=== PATIENT | female | born 1980 | race Two or more races ===

== ENCOUNTER 2016-09-02 21:13 | Emergency (ER) | payer BC, MEDICAID ==
--- NOTE | 2016-09-02 22:24 | ER Document Report ---
ED Medical Screen (RME) - General Chief Complaint: Vag Bleeding, +preg <12wks Stated Complaint: VAGINAL BLEEDING Time seen by provider: 22:22 Mode of Arrival: Ambulatory Information source: Patient Notes: 36-year-old female presents to ED with vaginal bleeding with early unsure how far how. I have greeted and performed a rapid initial assessment of this patient. A comprehensive ED assessment and evaluation of the patient, analysis of test results and completion of medical decision making process will be conducted by an additional ED providers. - Related Data Allergies/Adverse Reactions: No Known Allergies Allergy (Verified 12/29/12 21:36) Past Medical History - Immunizations Hx Diphtheria, Pertussis, Tetanus Vaccination: No Physical Exam - Vital signs Vitals: Temp Pulse Resp BP Pulse Ox 97.9 F 72 14 128/75 H 99 09/02/16 22:03 09/02/16 22:03 09/02/16 22:03 09/02/16 22:03 09/02/16 22:03 Course - Vital Signs Vital signs: Temp Pulse Resp BP Pulse Ox 97.9 F 72 14 128/75 H 99 09/02/16 22:03 09/02/16 22:03 09/02/16 22:03 09/02/16 22:03 09/02/16 22:03
[2016-09-03 01:43] LABS: APPEARANCE,URINE SLIGHTLY-CLOUDY; BILIRUBIN,URINE NEGATIVE (NEGATIVE); GLUCOSE, URINE NEGATIVE (NEGATIVE); KETONES,URINE NEGATIVE (NEGATIVE); LEUKOCYTE ESTERASE,URINE NEGATIVE (NEGATIVE); NITRITE,URINE NEGATIVE (NEGATIVE); PROTEIN,URINE NEGATIVE (NEGATIVE); URINE SPECIFIC GRAVITY 1.012; UROBILINOGEN,URINE NEGATIVE mg/dL (<2.0)
--- NOTE | 2016-09-03 02:30 | ER Document Report ---
ED GI/ - General Chief Complaint: Vag Bleeding, +preg <12wks Stated Complaint: VAGINAL BLEEDING Time seen by provider: 02:30 Mode of Arrival: Ambulatory Information source: Patient TRAVEL OUTSIDE OF THE [place] IN LAST 30 DAYS: No - HPI Patient complains to provider of: , Vaginal bleeding Onset: Last week Timing/Duration: Sudden Quality of pain: Achy, Cramping Severity at maximum: Mild Severity in ED: None Location: Pelvis Vaginal bleeding (Compared to normal period): Similar Menstrual period history: Missed Associated symptoms: None Exacerbated by: Denies Relieved by: Denies Similar symptoms previously: No Recently seen / treated by doctor: Yes Notes: 09/03/16 03:52 Patient is a 36-year-old female presenting to the emergency room complaining of vaginal bleeding that started last Monday and stopped yesterday, states she missed her period in July, last menstrual cycle was in June at some point in time, she reports a positive home test and she would up with her primary care providers last week and had a positive test there is well, she denies any abdominal or pelvic pain, no vomiting, no vaginal discharge - Related Data Allergies/Adverse Reactions: No Known Allergies Allergy (Verified 09/02/16 22:27) Past Medical History - General Information source: Patient - Social History Smoking Status: Never Smoker Chew tobacco use (# tins/day): No Frequency of alcohol use: None Drug Abuse: None Family History: Reviewed & Not Pertinent Patient has suicidal ideation: No Patient has homicidal ideation: No Renal/ Medical History: Denies: Hx Peritoneal Dialysis - Immunizations Hx Diphtheria, Pertussis, Tetanus Vaccination: No Review of Systems - Review of Systems Constitutional: No symptoms reported EENT: No symptoms reported Cardiovascular: No symptoms reported Respiratory: No symptoms reported Gastrointestinal: No symptoms reported Genitourinary: No symptoms reported Female Genitourinary: See HPI Musculoskeletal: No symptoms reported Skin: No symptoms reported Hematologic/Lymphatic: No symptoms reported Neurological/Psychological: No symptoms reported -: Yes All other systems reviewed and negative Physical Exam - Vital signs Vitals: Temp Pulse Resp BP Pulse Ox 97.9 F 72 14 128/75 H 99 09/02/16 22:03 09/02/16 22:03 09/02/16 22:03 09/02/16 22:03 09/02/16 22:03 Interpretation: Normal - General General appearance: Appears well, Alert - HEENT Head: Normocephalic, Atraumatic Eyes: Normal Pupils: PERRL - Respiratory Respiratory status: No respiratory distress Chest status: Nontender Breath sounds: Normal Chest palpation: Normal - Cardiovascular Rhythm: Regular Heart sounds: Normal auscultation Murmur: No - Abdominal Inspection: Normal Distension: No distension Bowel sounds: Normal Tenderness: Nontender Organomegaly: No organomegaly - Back Back: Normal, Nontender - Extremities General upper extremity: Normal inspection, Nontender, Normal color, Normal ROM , Normal temperature General lower extremity: Normal inspection, Nontender, Normal color, Normal ROM , Normal temperature, Normal weight bearing. No: Amelia's sign - Neurological Neuro grossly intact: Yes Cognition: Normal Orientation: AAOx4 [place] Coma Scale Eye Opening: Spontaneous [place] Coma Scale Verbal: Oriented [place] Coma Scale Motor: Obeys Commands Venecia Coma Scale Total: 15 Speech: Normal Motor strength normal: LUE, RUE, LLE, RLE Sensory: Normal - Psychological Associated symptoms: Normal affect, Normal mood - Skin Skin Temperature: Warm Skin Moisture: Dry Skin Color: Normal Course - Re-evaluation Re-evalutation: 09/03/16 03:24 Patient's laboratory findings were discussed with her at bedside, beta quantitative hCG is only 15 today, I explained to patient that is unlikely that she will remain , and that the bleeding she's had over the past few days was likely a miscarriage, she has no pelvic pain, the bleeding has stopped , she is otherwise resting comfortably in no acute distress, patient was advised to follow-up with her primary care provider or [facility] in 2-3 days or return if symptoms worsen, patient acknowledges understanding and agreement with this plan - Vital Signs Vital signs: Temp Pulse Resp BP Pulse Ox 97.9 F 66 14 128/75 H 98 09/02/16 22:24 09/02/16 22:24 09/02/16 22:24 09/02/16 22:24 09/02/16 22:24 - Laboratory Result Diagrams: 09/03/16 02:35 09/03/16 02:35 Laboratory results interpreted by me: 09/03/16 09/03/16 09/03/16 01:20 02:35 02:35 Seg Neutrophils % 32.5 L Lymphocytes % 59.3 H Calcium 10.3 H Total Protein 9.2 H Beta HCG, Quant 15.02 H Urine Blood SMALL H Discharge - Discharge Clinical Impression: Vaginal bleeding before 22 weeks gestation Condition: Stable Disposition: HOME, SELF-CARE Instructions: Vaginal Bleeding ([facility]), Threatened Miscarriage ([facility]) Additional Instructions: Follow up with your primary care provider or [facility] in 2-3 days for repeat testing. Return to the emergency room immediately if symptoms worsen or any additional concerns.
[2016-09-03 02:55] LABS: ABSOLUTE EOSINOPHILS # (AUTO) 0.2 10^3/uL (0.0-0.6); ABSOLUTE LYMPHOCYTES (AUTO) 3.4 10^3/uL (0.5-4.7); ABSOLUTE MONOCYTES (AUTO) 0.3 10^3/uL (0.1-1.4); ABSOLUTE NEUT (AUTO) 1.8 10^3/uL (1.7-8.2); BASOPHILS % (AUTO) 0.9 % (0-2); EOSINOPHILS % (AUTO) 2.8 % (0-6); HEMATOCRIT 41.1 % (36.0-47.0); HEMOGLOBIN 13.7 g/dL (12.0-15.5); LYMPHOCYTES % (AUTO) 59.3 % (13-45); MEAN CORPUSCULAR HEMOGLOBIN 30.7 pg (27.0-33.4); MEAN CORPUSCULAR HGB CONC 33.4 g/dL (32.0-36.0); MEAN CORPUSCULAR VOLUME 92 fl (80-97); MONOCYTES % (AUTO) 4.5 % (3-13); RED BLOOD COUNT 4.47 10^6/uL (3.72-5.28); RED CELL DISTRIBUTION WIDTH 13.4 % (11.5-14.0); SEGMENTED NEUTROPHILS % (AUTO) 32.5 % (42-78); WHITE BLOOD COUNT 5.7 10^3/uL (4.0-10.5)
[2016-09-03 02:57] LABS: ALANINE AMINOTRANSFERASE 34 U/L (9-52); ALBUMIN 4.6 g/dL (3.5-5.0); ALKALINE PHOSPHATASE 65 U/L (38-126); ANION GAP 11 (5-19); ASPARTATE AMINO TRANSFERASE 24 U/L (14-36); BILIRUBIN,TOTAL 0.6 mg/dL (0.2-1.3); BLOOD UREA NITROGEN 12 mg/dL (7-20); CALCIUM 10.3 mg/dL (8.4-10.2); CARBON DIOXIDE 30 mmol/L (22-30); CHLORIDE 101 mmol/L (98-107); CREATININE RESULT 0.82 mg/dL (0.52-1.25); GLUCOSE 97 mg/dL (75-110); POTASSIUM 3.9 mmol/L (3.6-5.0); SODIUM 142.4 mmol/L (137-145); TOTAL PROTEIN 9.2 g/dL (6.3-8.2)
[2016-09-03 03:59] VITALS: BP 119/68
== END 2016-09-03 03:59 | disposition home or self-care (01) ==
LOC: ER 21:13
DX: O46.90 Antepartum hemorrhage, unspecified, unspecified trimester (principal); Z3A.00 Weeks of gestation of pregnancy not specified
CPT/HCPCS: 36415; 80053; 81001; 84702; 85025; 99284

== ENCOUNTER 2017-08-21 11:41 | Outpatient (CLI) | payer OTHER, MEDICAID ==
--- NOTE | 2017-08-21 12:48 | Non Stress Test Report ---
Non Stress Test Datetime Report Generated by CPN: 08/21/2017 12:48 DEMOGRAPHIC EGA NST: 34.2 INDICATION Indication for Study: Diabetes Mellitus VITAL SIGNS Temperature - NST: 97.5 Pulse - NST: 94 RESP - NST: 18 NBPSYS NST: 99 NBPDIA NST: 55 MONITORING Monitor Explained: Monitor Explained; Test Explained; Patient Verbalized Understanding Time on Monitor: 08/21/2017 11:56 Time off Monitor: 08/21/2017 12:27 NST Duration: 31 NST INTERVENTIONS NST Interventions: PO Hydration; Reposition Patient Physician Notified NST: H RIYA, CNM REVIEWED STRIP BABY A: [id number] BABY A Movement : Present Contraction Frequency : NONE FHR Baseline : 135 Accelerations : 15X15 Decelerations : None Variability : Moderate 6-25bpm NST Review: Meets Criteria for Reactive NST NST Review and Verified By : MICHELLE Soto NST Results: Reactive NST REPORT Report Trigger: Send Report
== END 2017-08-21 12:38 | disposition home or self-care (01) ==
LOC: LC 11:41
PROVIDERS: ATTEND Obstetrics & Gynecology
PROC: 4A1HXCZ Monitoring of Products of Conception, Cardiac Rate, External Approach (ICD-10-PCS; principal; 2017-08-21)
DX: O24.419 Gestational diabetes mellitus in pregnancy, unspecified control (principal); O09.523 Supervision of elderly multigravida, third trimester; Z3A.34 34 weeks gestation of pregnancy
CPT/HCPCS: 59025

== ENCOUNTER 2017-08-28 07:30 | Inpatient (IN) | payer MEDICAID ==
[2017-09-22 11:28] LABS: ABSOLUTE EOSINOPHILS # (AUTO) 0.1 10^3/uL (0.0-0.6); ABSOLUTE LYMPHOCYTES (AUTO) 2.3 10^3/uL (0.5-4.7); ABSOLUTE MONOCYTES (AUTO) 0.4 10^3/uL (0.1-1.4); ABSOLUTE NEUT (AUTO) 5.5 10^3/uL (1.7-8.2); BASOPHILS % (AUTO) 0.4 % (0-2); EOSINOPHILS % (AUTO) 1.3 % (0-6); HEMATOCRIT 38.5 % (36.0-47.0); LYMPHOCYTES % (AUTO) 27.3 % (13-45); MEAN CORPUSCULAR HEMOGLOBIN 31.5 pg (27.0-33.4); MEAN CORPUSCULAR HGB CONC 33.8 g/dL (32.0-36.0); MEAN CORPUSCULAR VOLUME 93 fl (80-97); MONOCYTES % (AUTO) 5.2 % (3-13); PLATELET COUNT 183 10^3/uL (150-450); RED BLOOD COUNT 4.13 10^6/uL (3.72-5.28); RED CELL DISTRIBUTION WIDTH 15.3 % (11.5-14.0); SEGMENTED NEUTROPHILS % (AUTO) 65.8 % (42-78); TOTAL CELLS COUNTED % (AUTO) 100 %; WHITE BLOOD COUNT 8.3 10^3/uL (4.0-10.5)
[2017-09-22 11:41] LABS: APPEARANCE,URINE CLEAR; BILIRUBIN,URINE NEGATIVE (NEGATIVE); COLOR,URINE STRAW; GLUCOSE, URINE NEGATIVE (NEGATIVE); KETONES,URINE NEGATIVE (NEGATIVE); LEUKOCYTE ESTERASE,URINE TRACE (NEGATIVE); NITRITE,URINE NEGATIVE (NEGATIVE); PROTEIN,URINE NEGATIVE (NEGATIVE); URINE SPECIFIC GRAVITY 1.008; UROBILINOGEN,URINE NEGATIVE mg/dL (<2.0)
[2017-09-22 11:46] LABS: URINE AMPHETAMINES SCREEN NEGATIVE; URINE BARBITURATES SCREEN NEGATIVE; URINE BENZODIAZEPINES SCREEN NEGATIVE; URINE COCAINE SCREEN NEGATIVE; URINE MARIJUANA (THC) SCREEN NEGATIVE; URINE METHADONE SCREEN NEGATIVE; URINE PHENCYCLIDINE SCREEN NEGATIVE
[2017-09-25] MEDS ORDERED: LACTATED RINGERS 1000 ML IV PRN (05:00)
[2017-09-25] MEDS ORDERED: LIDOCAINE 0.5% INJ-PF (5 MG/ML) 50 ML SDV SUBCUT PRN (05:00)
[2017-09-25] MEDS ORDERED: RINGERS SOLUTION,LACTATED 1,000 ML IV PRN ×2 (05:00→11:47)
[2017-09-25] MEDS ORDERED: CEFAZOLIN 2 GM/D5W RTU 2 GM/50 ML RTUPB IV PRN (05:00)
[2017-09-25] MEDS ORDERED: OXYTOCIN 10 UNIT/ML VIAL ONE (09:35)
[2017-09-25] MEDS ORDERED: PROPOFOL INJ 200 MG/20 ML VIAL IV ONE (09:35)
[2017-09-25] MEDS ORDERED: OXYTOCIN/NORMAL SALINE 20 UNIT/1,000 ML RTUINJ ONE (09:36)
[2017-09-25] MEDS ORDERED: MIDAZOLAM 2 MG/2 ML INJ ONE (09:36)
[2017-09-25] MEDS ORDERED: EPHEDRINE SULFATE INJ 50 MG/1 ML AMPULE ONE (09:36)
[2017-09-25] MEDS ORDERED: FENTANYL CITRATE INJ/PF 100 MCG/2 ML AMPUL ONE (09:36)
[2017-09-25] MEDS ORDERED: ONDANSETRON HCL INJ/PF 4 MG/2 ML SDV ONE (09:37)
[2017-09-25] MEDS ORDERED: ACETAMINOPHEN 100 ML IV ONE (09:37)
[2017-09-25] MEDS ORDERED: DIPHENHYDRAMINE HCL 50 MG/ML VIAL IV PRN (09:44)
[2017-09-25] MEDS ORDERED: FENTANYL CITRATE INJ/PF 100 MCG/2 ML AMPUL IV PRN ×3 (09:44)
[2017-09-25] MEDS ORDERED: PROMETHAZINE HCL INJ 25 MG/1 ML VIAL IV PRN ×2 (09:44→11:47)
[2017-09-25] MEDS ORDERED: MISOPROSTOL 0.1 MG TABLET ONE (10:51)
[2017-09-25] MEDS ORDERED: MISOPROSTOL 0.2 MG TABLET ONE (10:52)
[2017-09-25] MEDS ORDERED: ACETAMINOPHEN 325 MG TABLET PO PRN (11:47)
[2017-09-25] MEDS ORDERED: SIMETHICONE 80 MG TAB.CHEW PO PRN (11:47)
[2017-09-25] MEDS ORDERED: DIPH/PERTUSS(ACELL)/TETANUS VAC/PF 0.5 ML SYR (>=10YO) IM PRN (11:47)
[2017-09-25] MEDS ORDERED: MEASLES,MUMPS&RUBELLA VACC/PF 0.5 ML VIAL SUBCUT PRN (11:47)
[2017-09-25] MEDS ORDERED: ACETAMINOPHEN 100 ML IV PRN (11:47)
[2017-09-25] MEDS ORDERED: OXYTOCIN/NORMAL SALINE 20 UNIT/1,000 ML RTUINJ IV PRN (11:47)
[2017-09-25] MEDS ORDERED: OXYCODONE-ACETAMINOPHEN 5-325 MG TABLET PO PRN (11:47)
--- NOTE | 2017-09-25 11:52 | PDOC DELIVERY SUMMARY ---
Delivery Summary - Maternal Hx : IV Hx Para: II Hx # Term Pregnancies: 2 Hx # Pregnancies: 0 Hx Total # of Abortions (Sponateous & Elective): 1 Number of Living Children: 2 SHANICE: 09/25/17 Gestational Age: 39.2 Risk Factors: Previous , Gestational Diabetes Ruptured Membranes: AROM Time of Rupture: 10:41 Fluids: Meconium Stained - Delivery Labor: Not In Labor Presentation: Vertex Heart Rate Monitoring: Done Pre-Operatively Uterine Contraction Monitoring: External Support Person Present: Yes Location: LD : Scheduled, Repeat Placenta: Within Normal Limits Placenta Description: normal Number of Vessels (Cord): 3 Nuchal Cord: No Delivery of Placenta Date: 09/25/17 Delivery of Placenta Time: 10:44 Estimated Blood Loss: 700ml - Medications Type of Anesthesia:: Spinal - Delivery Medications Delivery Meds: Cytotec 1000mcg Per Rectum/Vagina - Assess and Care Baby 1 Male Delivery of Infant Date: 09/25/17 Delivery of Time: 10:42 at 1 minute: 8 at 5 minutes: 9 Preprinted Number On Band: [id number] Infant Skin to Skin: No To Nursery At: 10:53 Mode of Transport: Bassinet Infant Delivery Weight: 3,805 Infant Delivery Length: 20 in - Delivery Personnel It Security Administrator: ABUNDIO FELIZ RN: MELANIA CHICAS RN: JAYSHERE BLUM MD: LEELEE MARQUEZ
[2017-09-25] MEDS ORDERED: KETOROLAC TROMETHAMINE INJ/PF 30 MG/1 ML SDV IV SCH (12:00)
[2017-09-25] MEDS ORDERED: NALBUPHINE HCL INJ 10 MG/1 ML AMPULE INJ ONE (12:04)
--- NOTE | 2017-09-25 12:04 | Brief Operative Note ---
BRIEF OPERATIVE REPORT DATE OF SURGERY: 09/25/17 TIME OF SURGERY: 11:45 PREOPERATIVE DIAGNOSIS: Keloid Scar, H/o Section x 2, A2GDM, AMA POSTOPERATIVE DIAGNOSIS: LEXIE - delivered SURGEON: LEELEE MARQUEZ FINDINGS: VMI delivered at 1042, Apgars 8/9, Weight 8#6oz, Cytotec 1000mcg AL placed for atony. minimal pelvic adhesive disease. Normal bilateral tubes and ovaries noted. EBL 700ml (QBL 921ml), UOP 150ml, IVF 1400ml COMPLICATIONS: None ESTIMATED BLOOD LOSS: 700ml (QBO 921ml) TISSUE REMOVED OR ALTERED: placenta and cord not sent to pathology TECHNICAL PROCEDURE: Scar Revision, Repeat Low Transverse Section
[2017-09-25] MEDS: FENTANYL CITRATE INJ/PF 100 MCG/2 ML AMPUL ONE ×2 (12:20→13:15)
[2017-09-25] MEDS ORDERED: KETOROLAC TROMETHAMINE INJ/PF 30 MG/1 ML SDV ONE (12:22)
[2017-09-25] MEDS ORDERED: NALBUPHINE HCL INJ 10 MG/1 ML AMPULE ONE (12:22)
[2017-09-25] MEDS ORDERED: MISOPROSTOL 0.2 MG TABLET PR ONE (14:50)
[2017-09-25] MEDS ORDERED: GLYCOPYRROLATE INJ 0.4 MG/2 ML VIAL ONE (15:03)
[2017-09-25] MEDS: OXYCODONE-ACETAMINOPHEN 5-325 MG TABLET PO PRN ×2 (16:27→23:30)
[2017-09-25] MEDS: DOCUSATE SODIUM 100 MG CAPSULE PO SCH (17:56)
[2017-09-25] MEDS ORDERED: INFLUENZA ADLT QUAD (36MOS+) 2017-18 VAC 0.5 ML SYR IM PRN (19:01)
[2017-09-25] MEDS: KETOROLAC TROMETHAMINE INJ/PF 30 MG/1 ML SDV IV SCH (22:46)
[2017-09-26] MEDS: KETOROLAC TROMETHAMINE INJ/PF 30 MG/1 ML SDV IV SCH (06:35)
[2017-09-26] MEDS: IBUPROFEN 800 MG TABLET PO SCH ×4 (06:38→23:47)
[2017-09-26 07:30] LABS: HEMOGLOBIN 10.5 g/dL (12.0-15.5); MEAN CORPUSCULAR HEMOGLOBIN 31.8 pg (27.0-33.4); MEAN CORPUSCULAR HGB CONC 33.8 g/dL (32.0-36.0); MEAN CORPUSCULAR VOLUME 94 fl (80-97); PLATELET COUNT 146 10^3/uL (150-450); RED BLOOD COUNT 3.29 10^6/uL (3.72-5.28); RED CELL DISTRIBUTION WIDTH 15.5 % (11.5-14.0); WHITE BLOOD COUNT 10.4 10^3/uL (4.0-10.5)
--- NOTE | 2017-09-26 09:12 | PDOC PROGRESS REPORT ---
Subjective-OB Progress Note for:: 09/26/17 Subjective: Doing well, OOB to BR, eating well, no c.o, some pain but hates to take pain medication, scant bleeding Physical Exam (OB) Vital Signs: Temp Pulse Resp BP Pulse Ox 97.6 F 62 16 97/61 L 100 09/26/17 08:53 09/26/17 08:53 09/26/17 08:53 09/26/17 08:53 09/26/17 08:53 Intake & Output 09/25/17 09/26/17 09/27/17 06:59 06:59 06:59 Intake Total 3728 Output Total 4330 Balance -602 Weight 70.76 kg - PIH/Pre-Eclampsia DTR's: 2 + Clonus: Negative Headache: Absent Epigastric Pain: No Visual Changes: No - Dressing Removed: No - incision D&I, no redness, drainage or swelling noted Incision: Open Closure Type: surg tape - Lochia Lochia Amount: Small 10-25 ml Lochia Color: Rubra/Red - Abdomen Description: Soft Hernia Present: No Fundal Description: Firm, Midline Fundal Height: u/u - u/2 Objective-Diagnostic Laboratory: 09/26/17 07:06 09/26/17 07:06 WBC 10.4 RBC 3.29 L Hgb 10.5 L Hct 31.0 L MCV 94 MCH 31.8 MCHC 33.8 RDW 15.5 H Plt Count 146 L Assessment and Plan(PN) - Assessment and Plan (1) Advanced maternal age (AMA) in Is this a current diagnosis for this admission?: Yes (2) Gestational diabetes mellitus (GDM) controlled on oral hypoglycemic drug Qualifiers: Trimester: second trimester Qualified Code(s): O24.415 - Gestational diabetes mellitus in , controlled by oral hypoglycemic drugs Is this a current diagnosis for this admission?: Yes (3) Maternal care due to low transverse uterine scar from previous delivery Is this a current diagnosis for this admission?: Yes (4) Status post repeat low transverse section Is this a current diagnosis for this admission?: Yes - Time Spent with Patient Time with patient: Less than 15 minutes Medications reviewed and adjusted accordingly: Yes - Disposition Anticipated Discharge: Home Within: within 48 hours
[2017-09-26] MEDS: DOCUSATE SODIUM 100 MG CAPSULE PO SCH ×2 (10:17→18:18)
[2017-09-26] MEDS: PRENATAL VITAMIN W DHA CAPSULE PO SCH (10:17)
[2017-09-26] MEDS: OXYCODONE-ACETAMINOPHEN 5-325 MG TABLET PO PRN (20:57)
[2017-09-27] MEDS: IBUPROFEN 800 MG TABLET PO SCH ×2 (05:51→11:42)
[2017-09-27] MEDS: DOCUSATE SODIUM 100 MG CAPSULE PO SCH (09:41)
[2017-09-27] MEDS: PRENATAL VITAMIN W DHA CAPSULE PO SCH (09:41)
--- NOTE | 2017-09-27 10:24 | PDOC DISCHARGE SUMMARY ---
Final Diagnosis Discharge Date: 09/27/17 - Final Diagnosis (1) Advanced maternal age (AMA) in Is this a current diagnosis for this admission?: Yes (2) Gestational diabetes mellitus (GDM) controlled on oral hypoglycemic drug Is this a current diagnosis for this admission?: Yes (3) Maternal care due to low transverse uterine scar from previous delivery Is this a current diagnosis for this admission?: Yes (4) Status post repeat low transverse section Is this a current diagnosis for this admission?: Yes Discharge Data - Discharge Medication Home Medications: Glyburide 0.5 tab PO BID 08/21/17 Pnv No.103/Folic/Om3s/Fish Oil [ Gummies] 2 tab PO DAILY 08/21/17 Reason(s) for Admission: Ceasarean Section-Repeat Intrapartum Procedure(s): : Low Cervical, Transverse - Diagnosis Test Laboratory: Temp Pulse Resp BP Pulse Ox 98.2 F 84 17 94/64 L 100 09/27/17 08:43 09/27/17 08:43 09/27/17 08:43 09/27/17 08:43 09/27/17 08:43 09/22/17 09/22/17 09/26/17 10:40 10:40 07:06 RBC 4.13 3.29 L Hgb 13.0 10.5 L Hct 38.5 31.0 L Urine Opiates Screen NEGATIVE - Discharge information/Instructions Discharge Activity: Activity As Tolerated Discharge Diet: Regular Disposition: HOME, SELF-CARE Follow up with: [facility] in: 1
[2017-09-27 11:14] VITALS: BP 89/51
[2017-09-27] MEDS: OXYCODONE-ACETAMINOPHEN 5-325 MG TABLET PO PRN (11:52)
--- NOTE | 2017-10-22 22:44 | Operative Report ---
Operative Report DATE OF SURGERY: 09/25/17 PREOPERATIVE DIAGNOSIS: Keloid Scar, H/o Section x 2, A2GDM, AMA POSTOPERATIVE DIAGNOSIS: LEXIE - delivered OPERATION: Scar Revision, Repeat Low Transverse Section SURGEON: LEELEE MARQUEZ ANESTHESIA: Spinal TISSUE REMOVED OR ALTERED: placenta and cord not sent to pathology COMPLICATIONS: None ESTIMATED BLOOD LOSS: 700ml (QBO 921ml) INTRAOPERATIVE FINDINGS: VMI delivered at 1042, Apgars 8/9, Weight 8#6oz, Cytotec 1000mcg [place] placed for atony. minimal pelvic adhesive disease. Normal bilateral tubes and ovaries noted. EBL 700ml (QBL 921ml), UOP 150ml, IVF 1400ml PROCEDURE: Anesthesia provider: [Alexi Mercado MD, Tess Brian CRNA] Urine output: [150ml] IV fluids: [1400ml] Indications: [37yo [id number] at 39+2ega presents for Repeat Section. The is complicated by AMA, h/o section x 2, A2GDM. She declines contraception and declines tubal sterilization. The risks, benefits, and alternatives were reviewed and she desires to proceed with planned procedure.] Procedure: The patient was taken to the operating room where spinal anesthesia was obtained and found to be adequate. She was then prepped and draped in the normal sterile fashion and placed in the dorsal supine position with a leftward tilt. A Pfannenstiel skin incision was then made and carried through to the underlying layers of the fascia with the scalpel after excising the prior pfannensteil incision in an elliptical fashion. The fascia was incised in the midline and the incision extended laterally with the Dean scissors. The superior aspect of the fascial incision was then grasped with Janes clamps elevated and the underlying rectus muscles dissected off [bluntly]. Attention was then turned to the inferior aspect of the fascial incision which in a similar fashion was grasped, tented up with Marichuy clamps, and the rectus muscles dissected off [bluntly]. The rectus muscles were then in the midline and the peritoneum at the amount identified and entered [bluntly]. The peritoneal incision was then extended superiorly and inferiorly with good visualization of the bladder. The bladder blade was inserted and the vesicouterine peritoneum identified grasped with [place] pickups and entered sharply with the Metzenbaum scissors. This incision was then extended laterally with the Metzenbaum scissors and a bladder flap created digitally. The bladder blade was then reinserted and the lower uterine segment incised in a transverse fashion with the scalpel. The uterine incision was then extended bluntly. The bladder blade was removed and the infant's head was delivered from cephalic presentation atraumatically. The nose and mouth were suctioned and the cord doubly clamped and cut. And the was handed off to waiting pediatricians. The placenta was then delivered spontaneously and the uterus exteriorized and cleared of all clots and debris. The uterine incision was then repaired with 1- 0 Vicryl in a running locked fashion. A second layer of the same suture was used to obtain hemostasis via imbrication of the initial layer. The bladder flap was then repaired with 3-0 chromic in a running fashion. The uterus was returned to the patient's abdomen and Interceed was placed overlying the uterine incision to prevent adhesions. The gutters were cleared of all clots and debris. All operative sites were noted to be hemostatic. The fascia was reapproximated with 0 Vicryl in a running fashion from each lateral edge to the midline. The skin was closed with 3-0 Monocryl in a running subcuticular fashion with overlying Dermabond for additional dressing as well as wound closure. The patient tolerated the procedure well. Sponge lap needle and instrument counts are correct times 2. 2 g of Ancef were given prior to skin incision. The patient was taken to the recovery area awake and in stable condition.
== END 2017-09-27 14:50 | disposition home or self-care (01) | DRG 775 ==
LOC: 2S 09-25 07:00
PROVIDERS: ADMIT Student in an Organized Health Care Education/Training Program; ATTEND Student in an Organized Health Care Education/Training Program
PROC: 4A1HXCZ Monitoring of Products of Conception, Cardiac Rate, External Approach (ICD-10-PCS; 2017-09-25)
PROC: 10E0XZZ Delivery of Products of Conception, External Approach (ICD-10-PCS; principal; 2017-09-25 09:30)
PROC: 3E0234Z Introduction of Serum, Toxoid and Vaccine into Muscle, Percutaneous Approach (ICD-10-PCS; 2017-09-27)
PROC: 3E0234Z Introduction of Serum, Toxoid and Vaccine into Muscle, Percutaneous Approach (ICD-10-PCS; 2017-09-27)
DX: O34.211 Maternal care for low transverse scar from previous cesarean delivery (principal); O77.0 Labor and delivery complicated by meconium in amniotic fluid; O24.425 Gestational diabetes mellitus in childbirth, controlled by oral hypoglycemic drugs; N85.8 Other specified noninflammatory disorders of uterus; O62.2 Other uterine inertia; Z3A.39 39 weeks gestation of pregnancy; Z37.0 Single live birth; Z23 Encounter for immunization
CPT/HCPCS: 1961; 36415; 59025; 80307; 81001; 82962; 85025; 85027; 86850; 86900; 86901; 90686; 90715; 94799; C1765; G0378; J0131; J1885; J2250; J2300; J2405; J2590; J2704; J3010; J3490; J7120

== ENCOUNTER 2017-09-30 17:02 | Emergency (ER) | payer MEDICAID ==
[2017-09-30 17:17] VITALS: BP 119/67
--- NOTE | 2017-09-30 17:49 | ER Document Report ---
ED General - General Mode of Arrival: Ambulatory Information source: Patient TRAVEL OUTSIDE OF THE [place] IN LAST 30 DAYS: No - General Chief Complaint: Abdominal Pain Stated Complaint: POST SURGICAL PAIN Time Seen by Provider: 09/30/17 17:29 Notes: 37 y.o female presents to the ED s/p 5 days ago. She states this is her 3rd and she has not had pain after her first two C-sections as she has this time. She reports that her pain started yesterday, is worsened with movement and is mostly to her right side. Pt also reports back pain. She denies any foul smelling vaginal discharge but states that she has blood clots being expelled. She also denies any fevers, chills, vomiting or dysuria. Pt has an appointment with OBGYN on October 03. (JAMES SCHULZ) - Related Data Allergies/Adverse Reactions: No Known Allergies Allergy (Verified 09/22/17 10:57) Past Medical History - General Information source: Patient, Relative - Social History Smoking Status: Never Smoker Family History: Reviewed & Not Pertinent Renal/ Medical History: Denies: Hx Peritoneal Dialysis - Immunizations Hx Diphtheria, Pertussis, Tetanus Vaccination: No Review of Systems - Review of Systems Constitutional: See HPI. denies: Chills, Fever EENT: No symptoms reported Cardiovascular: No symptoms reported Respiratory: No symptoms reported Gastrointestinal: See HPI, Abdominal pain. denies: Vomiting Genitourinary: See HPI. denies: Dysuria Female Genitourinary: See HPI, Other - clots from . denies: Vaginal discharge, Vaginal odor Musculoskeletal: See HPI, Back pain Skin: No symptoms reported Hematologic/Lymphatic: See HPI Neurological/Psychological: No symptoms reported -: Yes All other systems reviewed and negative Physical Exam - Vital signs Vitals: Temp Pulse Resp BP Pulse Ox 98.3 F 72 18 119/67 98 09/30/17 17:12 09/30/17 17:12 09/30/17 17:12 09/30/17 17:12 09/30/17 17:12 - Notes Notes: Physical Exam: General: Alert, appears well. Able to stand. HEENT: Normocephalic. Atraumatic. PERRL. Extraocular movements intact. Oropharynx clear. Neck: Supple. Non-tender. Respiratory: No respiratory distress. Clear and equal breath sounds bilaterally. Cardiovascular: Regular rate and rhythm. Abdominal: Incision well appearing, no purulence or erythema. Soft, no rebound or guarding. normal bowel sounds. tenderness to umbilical region, no tenderness to incision site. Back: Non-tender. No deformity or step off. Extremities: Moves all four extremities. Upper extremities: Normal inspection. Normal ROM. Lower extremities: Normal inspection. No edema. Normal ROM. Neurological: Normal cognition. AAOx4. Normal speech. Psychological: Normal affect. Normal Mood. Skin: Warm. Dry. Normal color. (JAMES SCHULZ) Course - Re-evaluation Re-evalutation: 09/30/17 17:58 Patient well-appearing no red flags to suggest endometritis. No foul-smelling discharge no recent fevers or chills. Incision well-appearing with no purulence or induration. Instructed patient to use 1/2-2 times her pain medication for a total of 7 1/2-10 mg of Percocet every 4-6 hours. Return precautions were also provided regarding infection return precautions. She has a previously scheduled appointment for this Monday and she is to follow with that appointment. Urine at this time 09/30/17 18:10 Urinalysis shows no signs of infection patient will be discharged at this time ( CHELSY,MEI H) - Vital Signs Vital signs: Temp Pulse Resp BP Pulse Ox 98.3 F 72 18 119/67 98 09/30/17 17:12 09/30/17 17:12 09/30/17 17:12 09/30/17 17:12 09/30/17 17:12 - Laboratory Laboratory results interpreted by me: 09/30/17 17:40 Urine Blood MODERATE H Ur Leukocyte Esterase TRACE H Discharge - Discharge Clinical Impression: Encounter for postsurgical pain Disposition: HOME, SELF-CARE Instructions: Abdominal Pain ([facility]) Additional Instructions: Please use 1-1/2-2 Percocet pills provided by her [employer] every 4-6 hours as needed for pain while awake. Each pill has 325 mg of Tylenol do not exceed 3 g of Tylenol in 24 hours Please follow-up with your OB GEN with your scheduled appointment on Monday or sooner in the emergency department if you begin to develop any fevers chills or foul swelling vaginal discharge Scribe Attestation: 09/30/17 19:45 I personally performed the services described documentation, reviewed and edited the documentation which was dictated to describe my presence, and it accurately records my words and actions. (MEI VALENTINO) Scribe Documentation - Scribe Written by Zen:: Zen Ruffin [id number] acting as scribe for :: Chelsy
[2017-09-30 18:05] LABS: APPEARANCE,URINE CLEAR; BILIRUBIN,URINE NEGATIVE (NEGATIVE); COLOR,URINE YELLOW; GLUCOSE, URINE NEGATIVE (NEGATIVE); KETONES,URINE NEGATIVE (NEGATIVE); LEUKOCYTE ESTERASE,URINE TRACE (NEGATIVE); NITRITE,URINE NEGATIVE (NEGATIVE); PROTEIN,URINE NEGATIVE (NEGATIVE); URINE SPECIFIC GRAVITY 1.011; UROBILINOGEN,URINE NEGATIVE mg/dL (<2.0)
== END 2017-09-30 18:17 | disposition home or self-care (01) ==
LOC: ER 17:02
DX: O90.89 Other complications of the puerperium, not elsewhere classified (principal); G89.18 Other acute postprocedural pain; M54.9 Dorsalgia, unspecified
CPT/HCPCS: 81001; 99284

== ENCOUNTER → 2020-02-05 | Outpatient (CLI) | payer MEDICAID ==
--- NOTE | 2020-02-06 02:52 | RADIOLOGY REPORT (SQ) ---
Ultrasound of the right upper extremity: 02/05/2020 5:33 PM CDT HISTORY: 39-year-old patient with concern for an implanted subdermal contraceptive device. COMPARISON: None available TECHNIQUE: Multiple grayscale and color Doppler images of the right upper extremity at the area of interest were obtained. FINDINGS: The contraceptive device was not seen. There is a linear echogenic structure at the right upper extremity measuring up to 4 mm which likely does not represent the implanted device. This could possibly represent a portion of the implanted device. No focal fluid collection is seen. IMPRESSION: No focal fluid collection is seen. The implanted device is not well visualized.
== END ==
LOC: RAD 01-29 10:39
PROVIDERS: ATTEND Obstetrics & Gynecology Gynecology
DX: Z30.46 Encounter for surveillance of implantable subdermal contraceptive (principal)
CPT/HCPCS: 76882